=== PATIENT | female | born 1965 | race Caucasian/White ===

== ENCOUNTER 2018-01-23 10:51 | Inpatient (IN) | payer BC ==
[~2018-01-23 10:51] MED LIST: CEFAZOLIN 1 GM/50 ML (PMX) 50 ML IVPB
[2018-01-23] MEDS ORDERED: NEOMYC/POLYMYX/BACIT 30 GM OINT (13:20)
[2018-01-23] MEDS: TRANEXAMIC ACID 1,000 MG in DEXTROSE 5% 100 ML IV (13:30)
[2018-01-23] MEDS ORDERED: morphine SULFATE/PF (10 MG/10 ML) INJ (13:53)
[2018-01-23] MEDS ORDERED: FENTAnyl 50 MCG/ML VIAL (14:33)
[2018-01-23] MEDS: POLYMYXIN/BACITRACIN 1L IRRIG (14:36)
[2018-01-23] MEDS ORDERED: SUCCINYLCHOLINE CHLORIDE 100 MG/5 ML SYG IV (15:56)
[2018-01-23] MEDS ORDERED: LIDOCAINE 100 MG SYRINGE (15:56)
[2018-01-23] MEDS ORDERED: SUGAMMADEX SODIUM 200 MG/2 ML VIAL IV (15:56)
[2018-01-23] MEDS ORDERED: PROPOFOL 20 ML (15:56)
[2018-01-23] MEDS ORDERED: ROCURONIUM 50 MG INJ (15:56)
[2018-01-23] MEDS ORDERED: CEFAZOLIN 1 GM INJ (15:56)
[2018-01-23] MEDS ORDERED: METOCLOPRAMIDE 10 MG INJ IV (16:30)
[2018-01-23] MEDS ORDERED: ONDANSETRON 4 MG INJ IV (16:30)
[2018-01-23] MEDS ORDERED: FENTAnyl 50 MCG/ML VIAL IV ×2 (16:30)
[2018-01-23] MEDS ORDERED: HYDROmorphONE (0.2 MG/ML) 10ML SYG IV (16:30)
[2018-01-23] MEDS: HYDROmorphONE (0.2 MG/ML) 10ML SYG IV ×5 (16:39→17:05)
[2018-01-23 16:43] LABS: HEMATOCRIT 35.9 % (37.0-47.0); HEMOGLOBIN 11.2 g/dl (12.0-16.0)
[2018-01-23 17:06] LABS: ANION GAP 12 (8-16); BLOOD UREA NITROGEN 10 mg/dl (7-20); CALCIUM 8.8 mg/dl (8.4-10.2); CARBON DIOXIDE 25 mmol/L (21-31); CHLORIDE 107 mmol/L (97-110); CREATININE 0.49 mg/dl (0.44-1.00); GLUCOSE 148 mg/dl (70-220); POTASSIUM 3.8 mmol/L (3.5-5.1); SODIUM 140 mmol/L (135-144)
[2018-01-23] MEDS: MEPERIDINE 25 MG INJ IV (17:11)
[2018-01-23] MEDS: DIPHENHYDRAMINE 50 MG INJ IV (17:15)
[2018-01-23] MEDS: morphine 2 MG INJ IV ×2 (19:56→22:58)
[2018-01-23] MEDS: DEXTROSE 5%-LR 1,000 ML IV (23:49)
[2018-01-23] MEDS: HYDROCODONE/APAP (5/325) TAB PO (23:50)
[2018-01-24] MEDS: CEFAZOLIN 1 GM/50 ML (PMX) 50 ML IVPB ×3 (01:00→16:36)
[2018-01-24] MEDS: morphine 2 MG INJ IV ×4 (01:01→21:03)
[2018-01-24 05:48] LABS: ADD MAN DIFF? NO
[2018-01-24 05:52] LABS: BASOPHILS % 0.2 % (0.0-2.0); EOSINOPHILS # 0.1 10^3/ul (0.0-0.5); EOSINOPHILS % 0.4 % (0.0-7.0); HEMATOCRIT 32.4 % (37.0-47.0); HEMOGLOBIN 10.5 g/dl (12.0-16.0); LYMPHOCYTES # 0.8 10^3/ul (0.8-2.9); MEAN CORPUSCULAR HEMOGLOBIN 24.9 pg (29.0-33.0); MEAN CORPUSCULAR HGB CONC 32.4 g/dl (32.0-37.0); MEAN CORPUSCULAR VOLUME 76.8 fl (82.0-101.0); MEAN PLATELET VOLUME 11.8 fl (7.4-10.4); MONOCYTE # 0.8 10^3/ul (0.3-0.9); MONOCYTES % 6.4 % (0.0-11.0); NEUTROPHIL # 11.2 10^3/ul (1.6-7.5); NEUTROPHILS % 86.6 % (39.0-77.0); PLATELET COUNT 192 10^3/UL (140-415); RED BLOOD COUNT 4.22 10^6/ul (4.20-5.40); RED CELL DISTRIBUTION WIDTH 14.6 % (11.5-14.5)
[2018-01-24 05:56] LABS: WHITE BLOOD COUNT 12.9 10^3/ul (4.8-10.8)
[2018-01-24 06:08] LABS: ANION GAP 15 (8-16); BLOOD UREA NITROGEN 9 mg/dl (7-20); CALCIUM 8.9 mg/dl (8.4-10.2); CARBON DIOXIDE 28 mmol/L (21-31); CHLORIDE 102 mmol/L (97-110); CREATININE 0.46 mg/dl (0.44-1.00); GLUCOSE 183 mg/dl (70-220); POTASSIUM 3.5 mmol/L (3.5-5.1); SODIUM 141 mmol/L (135-144)
[2018-01-24] MEDS: HYDROmorphONE 0.5 MG/0.5 ML SYG IV ×3 (10:21→18:42)
[2018-01-24 11:10] LABS: ADD UMIC NO; UR ASCORBIC ACID NEGATIVE (NEGATIVE); UR BILIRUBIN (Dip) NEGATIVE (NEGATIVE); UR BLOOD (Dip) NEGATIVE (NEGATIVE); UR CLARITY CLEAR (CLEAR); UR COLOR YELLOW (YELLOW); UR GLUCOSE (Dip) 1+ mg/dL (NEGATIVE); UR KETONES (Dip) NEGATIVE (NEGATIVE); UR LEUKOCYTE ESTERASE (Dip) NEGATIVE Leu/ul (NEGATIVE); UR NITRITE (Dip) NEGATIVE (NEGATIVE); UR TOTAL PROTEIN (Dip) NEGATIVE (NEGATIVE); UR UROBILINOGEN (Dip) NEGATIVE (NEGATIVE)
[2018-01-24] MEDS: ASPIRIN (EC) 325 MG TAB PO ×2 (12:30→21:02)
[2018-01-25] MEDS: HYDROmorphONE 0.5 MG/0.5 ML SYG IV ×3 (01:47→18:16)
[2018-01-25 05:51] LABS: ADD MAN DIFF? NO
[2018-01-25 06:08] LABS: BASOPHILS % 0.2 % (0.0-2.0); EOSINOPHILS % 0.1 % (0.0-7.0); HEMATOCRIT 29.3 % (37.0-47.0); HEMOGLOBIN 9.3 g/dl (12.0-16.0); LYMPHOCYTES # 1.6 10^3/ul (0.8-2.9); LYMPHOCYTES % 12.3 % (15.0-51.0); MEAN CORPUSCULAR HEMOGLOBIN 24.3 pg (29.0-33.0); MEAN CORPUSCULAR HGB CONC 31.7 g/dl (32.0-37.0); MEAN CORPUSCULAR VOLUME 76.7 fl (82.0-101.0); MEAN PLATELET VOLUME 11.7 fl (7.4-10.4); MONOCYTE # 1.2 10^3/ul (0.3-0.9); NEUTROPHIL # 10.3 10^3/ul (1.6-7.5); NEUTROPHILS % 77.5 % (39.0-77.0); PLATELET COUNT 168 10^3/UL (140-415); RED BLOOD COUNT 3.82 10^6/ul (4.20-5.40); RED CELL DISTRIBUTION WIDTH 14.6 % (11.5-14.5)
[2018-01-25 06:08] LABS: WHITE BLOOD COUNT 13.3 10^3/ul (4.8-10.8)
[2018-01-25 06:12] LABS: PHOSPHORUS 2.6 mg/dl (2.5-4.9)
[2018-01-25 06:13] LABS: ANION GAP 11 (8-16); BLOOD UREA NITROGEN 8 mg/dl (7-20); CALCIUM 8.9 mg/dl (8.4-10.2); CARBON DIOXIDE 33 mmol/L (21-31); CHLORIDE 94 mmol/L (97-110); CREATININE 0.51 mg/dl (0.44-1.00); GLUCOSE 134 mg/dl (70-220); SODIUM 134 mmol/L (135-144)
[2018-01-25] MEDS: HYDROCODONE/APAP (5/325) TAB PO ×2 (09:17→14:00)
[2018-01-25] MEDS: ASPIRIN (EC) 325 MG TAB PO ×2 (09:17→20:51)
[2018-01-26] MEDS: HYDROmorphONE 0.5 MG/0.5 ML SYG IV ×2 (01:14→12:23)
[2018-01-26] MEDS: morphine 2 MG INJ IV (05:18)
[2018-01-26 06:35] LABS: ADD MAN DIFF? NO
[2018-01-26 06:45] LABS: WHITE BLOOD COUNT 11.3 10^3/ul (4.8-10.8)
[2018-01-26 06:45] LABS: BASOPHILS % 0.3 % (0.0-2.0); EOSINOPHILS % 0.3 % (0.0-7.0); HEMATOCRIT 28.9 % (37.0-47.0); HEMOGLOBIN 9.3 g/dl (12.0-16.0); LYMPHOCYTES # 1.2 10^3/ul (0.8-2.9); LYMPHOCYTES % 10.9 % (15.0-51.0); MEAN CORPUSCULAR HEMOGLOBIN 24.8 pg (29.0-33.0); MEAN CORPUSCULAR HGB CONC 32.2 g/dl (32.0-37.0); MEAN CORPUSCULAR VOLUME 77.1 fl (82.0-101.0); MEAN PLATELET VOLUME 11.4 fl (7.4-10.4); MONOCYTE # 0.8 10^3/ul (0.3-0.9); MONOCYTES % 7.3 % (0.0-11.0); NEUTROPHILS % 80.1 % (39.0-77.0); PLATELET COUNT 178 10^3/UL (140-415); RED BLOOD COUNT 3.75 10^6/ul (4.20-5.40); RED CELL DISTRIBUTION WIDTH 14.6 % (11.5-14.5)
[2018-01-26 07:11] LABS: ANION GAP 12 (8-16); BLOOD UREA NITROGEN 9 mg/dl (7-20); CALCIUM 8.9 mg/dl (8.4-10.2); CARBON DIOXIDE 32 mmol/L (21-31); CHLORIDE 100 mmol/L (97-110); CREATININE 0.58 mg/dl (0.44-1.00); GLUCOSE 136 mg/dl (70-220); POTASSIUM 3.7 mmol/L (3.5-5.1); SODIUM 140 mmol/L (135-144)
[2018-01-26] MEDS: HYDROCODONE/APAP (5/325) TAB PO ×2 (09:02→19:12)
[2018-01-26] MEDS: ASPIRIN (EC) 325 MG TAB PO ×2 (09:02→21:02)
[2018-01-27] MEDS: HYDROmorphONE 0.5 MG/0.5 ML SYG IV ×3 (01:21→11:24)
[2018-01-27 05:35] LABS: ADD MAN DIFF? NO
[2018-01-27 05:43] LABS: BASOPHILS % 0.3 % (0.0-2.0); EOSINOPHILS # 0.2 10^3/ul (0.0-0.5); EOSINOPHILS % 1.7 % (0.0-7.0); HEMATOCRIT 27.8 % (37.0-47.0); HEMOGLOBIN 8.5 g/dl (12.0-16.0); LYMPHOCYTES # 2.1 10^3/ul (0.8-2.9); LYMPHOCYTES % 23.9 % (15.0-51.0); MEAN CORPUSCULAR HEMOGLOBIN 24.1 pg (29.0-33.0); MEAN CORPUSCULAR HGB CONC 30.6 g/dl (32.0-37.0); MEAN CORPUSCULAR VOLUME 78.8 fl (82.0-101.0); MEAN PLATELET VOLUME 11.1 fl (7.4-10.4); MONOCYTE # 0.7 10^3/ul (0.3-0.9); MONOCYTES % 7.6 % (0.0-11.0); NEUTROPHIL # 5.6 10^3/ul (1.6-7.5); NEUTROPHILS % 65.5 % (39.0-77.0); PLATELET COUNT 173 10^3/UL (140-415); RED BLOOD COUNT 3.53 10^6/ul (4.20-5.40); RED CELL DISTRIBUTION WIDTH 14.6 % (11.5-14.5)
[2018-01-27 05:43] LABS: WHITE BLOOD COUNT 8.6 10^3/ul (4.8-10.8)
[2018-01-27 06:19] LABS: ANION GAP 13 (8-16); BLOOD UREA NITROGEN 9 mg/dl (7-20); CALCIUM 8.7 mg/dl (8.4-10.2); CARBON DIOXIDE 33 mmol/L (21-31); CHLORIDE 99 mmol/L (97-110); CREATININE 0.52 mg/dl (0.44-1.00); GLUCOSE 112 mg/dl (70-220); POTASSIUM 3.6 mmol/L (3.5-5.1); SODIUM 141 mmol/L (135-144)
[2018-01-27] MEDS: ASPIRIN (EC) 325 MG TAB PO ×2 (09:11→20:50)
[2018-01-27] MEDS: HYDROCODONE/APAP (5/325) TAB PO (16:21)
[2018-01-28] MEDS: HYDROCODONE/APAP (5/325) TAB PO ×3 (00:08→18:55)
[2018-01-28 05:12] LABS: ADD MAN DIFF? NO
[2018-01-28 05:20] LABS: WHITE BLOOD COUNT 7.7 10^3/ul (4.8-10.8)
[2018-01-28 05:20] LABS: BASOPHILS % 0.3 % (0.0-2.0); EOSINOPHILS # 0.2 10^3/ul (0.0-0.5); EOSINOPHILS % 2.4 % (0.0-7.0); HEMATOCRIT 26.7 % (37.0-47.0); HEMOGLOBIN 8.3 g/dl (12.0-16.0); LYMPHOCYTES # 1.7 10^3/ul (0.8-2.9); LYMPHOCYTES % 22.7 % (15.0-51.0); MEAN CORPUSCULAR HEMOGLOBIN 24.3 pg (29.0-33.0); MEAN CORPUSCULAR HGB CONC 31.1 g/dl (32.0-37.0); MEAN CORPUSCULAR VOLUME 78.3 fl (82.0-101.0); MEAN PLATELET VOLUME 10.4 fl (7.4-10.4); MONOCYTE # 0.6 10^3/ul (0.3-0.9); MONOCYTES % 8.2 % (0.0-11.0); NEUTROPHILS % 65.2 % (39.0-77.0); PLATELET COUNT 182 10^3/UL (140-415); RED BLOOD COUNT 3.41 10^6/ul (4.20-5.40); RED CELL DISTRIBUTION WIDTH 14.7 % (11.5-14.5)
[2018-01-28 05:51] LABS: ANION GAP 9 (8-16); BLOOD UREA NITROGEN 8 mg/dl (7-20); CALCIUM 8.9 mg/dl (8.4-10.2); CARBON DIOXIDE 35 mmol/L (21-31); CHLORIDE 102 mmol/L (97-110); CREATININE 0.52 mg/dl (0.44-1.00); GLUCOSE 108 mg/dl (70-220); POTASSIUM 3.9 mmol/L (3.5-5.1); SODIUM 142 mmol/L (135-144)
[2018-01-28] MEDS: ASPIRIN (EC) 325 MG TAB PO (09:10)
[2018-01-28] MEDS: HYDROmorphONE 0.5 MG/0.5 ML SYG IV (12:04)
== END 2018-01-28 19:00 | disposition home or self-care (01) | DRG 470 ==
LOC: REC 10:51 → MS1 18:05
PROC: 0SRD069 Replacement of Left Knee Joint with Oxidized Zirconium on Polyethylene Synthetic Substitute, Cemented, Open Approach (ICD-10-PCS; principal; 2018-01-23 13:00)
DX: M17.12 Unilateral primary osteoarthritis, left knee (principal); E66.01 Morbid (severe) obesity due to excess calories; I10 Essential (primary) hypertension; D72.829 Elevated white blood cell count, unspecified; G89.18 Other acute postprocedural pain; D64.9 Anemia, unspecified; Z68.39 Body mass index [BMI] 39.0-39.9, adult
CPT/HCPCS: 71045; 80048; 81003; 83735; 84100; 85014; 85018; 85025; 87086; 88304; 88311; 93005; 97110; 97116; 97162; 97530

== ENCOUNTER 2018-11-01 11:57 | Inpatient (IN) | payer BC ==
[~2018-11-01 11:57] MED LIST changes: -CEFAZOLIN 1 GM/50 ML (PMX) 50 ML IVPB; +ROCURONIUM 50 MG INJ
[2018-11-01] MEDS ORDERED: LIDOCAINE 2% (SDV) 5 ML INJ (13:16)
[2018-11-01] MEDS ORDERED: SUCCINYLCHOLINE CHLORIDE 100 MG/5 ML SYG IV (13:16)
[2018-11-01] MEDS ORDERED: PROPOFOL 20 ML (13:16)
[2018-11-01] MEDS: TRANEXAMIC ACID 1,000 MG in DEXTROSE 5% 100 ML IV (13:30)
[2018-11-01] MEDS ORDERED: CEFAZOLIN 1 GM INJ (13:47)
[2018-11-01] MEDS: POLYMYXIN/BACITRACIN 1L IRRIG IRR (14:17)
[2018-11-01] MEDS ORDERED: DEXAMETHASONE 4 MG/ML 1 ML INJ (14:19)
[2018-11-01] MEDS ORDERED: ONDANSETRON 4 MG INJ ×2 (14:19→15:47)
[2018-11-01] MEDS ORDERED: POLYMYXIN/BACITRACIN 1L IRRIG (14:44)
[2018-11-01] MEDS ORDERED: NEOMYC/POLYMYX/BACIT 30 GM OINT (14:44)
[2018-11-01] MEDS ORDERED: ROPIVACAINE 0.5 % 30 ML VIAL (15:12)
[2018-11-01] MEDS ORDERED: GLYCOPYRROLATE 0.4 MG INJ (15:22)
[2018-11-01] MEDS ORDERED: NEOSTIGMINE 3 MG/3 ML SYRINGE (15:22)
[2018-11-01] MEDS ORDERED: HYDROmorphONE 1 MG/5 ML IV SYRINGE IV ×2 (15:46→16:00)
[2018-11-01] MEDS ORDERED: KETOROLAC 30 MG INJ (15:47)
[2018-11-01] MEDS ORDERED: DIPHENHYDRAMINE 50 MG INJ (15:53)
[2018-11-01] MEDS ORDERED: CEFAZOLIN 1 GM INJ IVPB (16:00)
[2018-11-01] MEDS ORDERED: LABETALOL HCL 20MG INJ IV (16:00)
[2018-11-01] MEDS: KETOROLAC 30 MG INJ IV (16:01)
[2018-11-01] MEDS: ONDANSETRON 4 MG INJ IV (16:02)
[2018-11-01] MEDS: DIPHENHYDRAMINE 50 MG INJ IV (16:02)
[2018-11-01] MEDS: HYDROmorphONE 1 MG/5 ML IV SYRINGE IV (16:03)
[2018-11-01] MEDS ORDERED: CEFAZOLIN 1 GM/50 ML (PMX) 50 ML IVPB (16:10)
[2018-11-01] MEDS: CEFAZOLIN 1 GM/50 ML (PMX) 50 ML IVPB (16:12)
[2018-11-01] MEDS ORDERED: ASPIRIN (EC) 325 MG TAB PO (16:30)
[2018-11-01] MEDS: ASPIRIN (EC) 325 MG TAB PO (16:31)
[2018-11-01 17:26] LABS: HEMATOCRIT 36.8 % (37.0-47.0); HEMOGLOBIN 11.3 g/dl (12.0-16.0)
[2018-11-01 17:44] LABS: ANION GAP 7 (5-13); BLOOD UREA NITROGEN 10 mg/dl (7-20); CALCIUM 9.2 mg/dl (8.4-10.2); CARBON DIOXIDE 26 mmol/L (21-31); CHLORIDE 106 mmol/L (97-110); CREATININE 0.42 mg/dl (0.44-1.00); Estimated GFR > 60 mL/min (>60); GLUCOSE 132 mg/dl (70-220); POTASSIUM 4.9 mmol/L (3.5-5.1); SODIUM 139 mmol/L (135-144)
[2018-11-01] MEDS: morphine 2 MG INJ IV ×2 (18:07→21:36)
[2018-11-01] MEDS ORDERED: ACETAMINOPHEN 325 MG TAB PO (21:30)
[2018-11-01] MEDS: DEXTROSE 5%-0.45% NACL 1,000 ML IV (21:38)
[2018-11-02] MEDS: HYDROCODONE/APAP (5/325) TAB PO ×4 (00:20→23:27)
[2018-11-02] MEDS: morphine 2 MG INJ IV ×4 (04:23→22:08)
[2018-11-02 05:16] LABS: ADD MAN DIFF? NO
[2018-11-02 05:17] LABS: WHITE BLOOD COUNT 10.8 10^3/ul (4.8-10.8)
[2018-11-02 05:17] LABS: BASOPHILS % 0.1 % (0.0-2.0); HEMATOCRIT 32.1 % (37.0-47.0); HEMOGLOBIN 9.9 g/dl (12.0-16.0); LYMPHOCYTES # 0.8 10^3/ul (0.8-2.9); LYMPHOCYTES % 7.6 % (15.0-51.0); MEAN CORPUSCULAR HEMOGLOBIN 23.1 pg (29.0-33.0); MEAN CORPUSCULAR HGB CONC 30.8 g/dl (32.0-37.0); MEAN PLATELET VOLUME 10.8 fl (7.4-10.4); MONOCYTE # 0.7 10^3/ul (0.3-0.9); MONOCYTES % 6.3 % (0.0-11.0); NEUTROPHIL # 9.2 10^3/ul (1.6-7.5); NEUTROPHILS % 85.5 % (39.0-77.0); PLATELET COUNT 199 10^3/UL (140-415); RED BLOOD COUNT 4.28 10^6/ul (4.20-5.40); RED CELL DISTRIBUTION WIDTH 15.1 % (11.5-14.5)
[2018-11-02 05:38] LABS: ANION GAP 7 (5-13); BLOOD UREA NITROGEN 14 mg/dl (7-20); CALCIUM 9.1 mg/dl (8.4-10.2); CARBON DIOXIDE 31 mmol/L (21-31); CHLORIDE 101 mmol/L (97-110); CREATININE 0.51 mg/dl (0.44-1.00); Estimated GFR > 60 mL/min (>60); GLUCOSE 149 mg/dl (70-220); POTASSIUM 4.3 mmol/L (3.5-5.1); SODIUM 139 mmol/L (135-144)
[2018-11-02] MEDS: CEFAZOLIN 1 GM/50 ML (PMX) 50 ML IVPB ×2 (05:55→13:06)
[2018-11-02] MEDS: ASPIRIN (EC) 325 MG TAB PO ×2 (08:39→21:25)
[2018-11-02] MEDS: KETOROLAC 30 MG INJ IV (13:07)
[2018-11-02] MEDS: DEXTROSE 5%-0.45% NACL 1,000 ML IV (16:57)
[2018-11-03] MEDS: KETOROLAC 30 MG INJ IV ×2 (00:22→08:35)
[2018-11-03 06:19] LABS: ADD MAN DIFF? NO
[2018-11-03 06:33] LABS: BASOPHILS % 0.2 % (0.0-2.0); EOSINOPHILS # 0.1 10^3/ul (0.0-0.5); EOSINOPHILS % 0.7 % (0.0-7.0); HEMATOCRIT 28.2 % (37.0-47.0); HEMOGLOBIN 8.6 g/dl (12.0-16.0); LYMPHOCYTES # 1.2 10^3/ul (0.8-2.9); LYMPHOCYTES % 15.2 % (15.0-51.0); MEAN CORPUSCULAR HEMOGLOBIN 23.3 pg (29.0-33.0); MEAN CORPUSCULAR HGB CONC 30.5 g/dl (32.0-37.0); MEAN CORPUSCULAR VOLUME 76.4 fl (82.0-101.0); MONOCYTE # 0.6 10^3/ul (0.3-0.9); MONOCYTES % 7.5 % (0.0-11.0); NEUTROPHIL # 6.1 10^3/ul (1.6-7.5); NEUTROPHILS % 75.9 % (39.0-77.0); PLATELET COUNT 160 10^3/UL (140-415); RED BLOOD COUNT 3.69 10^6/ul (4.20-5.40); RED CELL DISTRIBUTION WIDTH 15.2 % (11.5-14.5)
[2018-11-03 06:33] LABS: WHITE BLOOD COUNT 8.1 10^3/ul (4.8-10.8)
[2018-11-03 06:58] LABS: MAGNESIUM 2.2 mg/dl (1.7-2.5)
[2018-11-03 06:58] LABS: PHOSPHORUS 3.2 mg/dl (2.5-4.9)
[2018-11-03 07:07] LABS: ANION GAP 7 (5-13); BLOOD UREA NITROGEN 8 mg/dl (7-20); CALCIUM 8.6 mg/dl (8.4-10.2); CARBON DIOXIDE 30 mmol/L (21-31); CHLORIDE 101 mmol/L (97-110); CREATININE 0.39 mg/dl (0.44-1.00); Estimated GFR > 60 mL/min (>60); GLUCOSE 112 mg/dl (70-220); POTASSIUM 3.8 mmol/L (3.5-5.1); SODIUM 138 mmol/L (135-144)
[2018-11-03] MEDS: ASPIRIN (EC) 325 MG TAB PO ×2 (08:37→20:55)
[2018-11-03] MEDS: HYDROCODONE/APAP (5/325) TAB PO ×2 (11:09→16:16)
[2018-11-03] MEDS: morphine 2 MG INJ IV (12:51)
[2018-11-03 16:15] LABS: RETICULOCYTE RBC 3.66
[2018-11-03 16:15] LABS: RETICULOCYTE COUNT # 0.061 X10^6 (0.020-0.110); RETICULOCYTE COUNT % 1.7 % (0.5-1.5)
[2018-11-03 16:19] LABS: IRON 12 ug/dl (35-150)
[2018-11-03 16:28] LABS: % IRON SATURATION 4 % SAT (22-52); TOTAL IRON BINDING CAPACITY 307 ug/dl (241-421)
[2018-11-03] MEDS: FERROUS SULFATE (EC) 325 MG TAB PO (20:55)
[2018-11-03 22:29] LABS: FOLATE 4.8 ng/ml (2.8-20.0)
[2018-11-04] MEDS: HYDROCODONE/APAP (5/325) TAB PO ×4 (00:55→22:04)
[2018-11-04 05:01] LABS: ADD MAN DIFF? NO
[2018-11-04 05:12] LABS: WHITE BLOOD COUNT 8.6 10^3/ul (4.8-10.8)
[2018-11-04 05:12] LABS: BASOPHILS % 0.3 % (0.0-2.0); EOSINOPHILS # 0.1 10^3/ul (0.0-0.5); EOSINOPHILS % 1.6 % (0.0-7.0); HEMOGLOBIN 8.6 g/dl (12.0-16.0); LYMPHOCYTES # 1.2 10^3/ul (0.8-2.9); LYMPHOCYTES % 14.2 % (15.0-51.0); MEAN CORPUSCULAR HEMOGLOBIN 23.3 pg (29.0-33.0); MEAN CORPUSCULAR HGB CONC 30.7 g/dl (32.0-37.0); MEAN CORPUSCULAR VOLUME 75.9 fl (82.0-101.0); MEAN PLATELET VOLUME 11.6 fl (7.4-10.4); MONOCYTE # 0.6 10^3/ul (0.3-0.9); MONOCYTES % 6.4 % (0.0-11.0); NEUTROPHIL # 6.6 10^3/ul (1.6-7.5); NEUTROPHILS % 76.9 % (39.0-77.0); PLATELET COUNT 173 10^3/UL (140-415); RED BLOOD COUNT 3.69 10^6/ul (4.20-5.40); RED CELL DISTRIBUTION WIDTH 15.2 % (11.5-14.5)
[2018-11-04 05:23] LABS: ANION GAP 7 (5-13); BLOOD UREA NITROGEN 8 mg/dl (7-20); CALCIUM 8.8 mg/dl (8.4-10.2); CARBON DIOXIDE 32 mmol/L (21-31); CHLORIDE 100 mmol/L (97-110); CREATININE 0.39 mg/dl (0.44-1.00); Estimated GFR > 60 mL/min (>60); GLUCOSE 113 mg/dl (70-220); SODIUM 139 mmol/L (135-144)
[2018-11-04] MEDS: ASPIRIN (EC) 325 MG TAB PO ×2 (08:48→21:53)
[2018-11-04] MEDS: FERROUS SULFATE (EC) 325 MG TAB PO ×2 (08:49→21:56)
[2018-11-04] MEDS: CYANOCOBALAMIN 1000 MCG INJ SC ×2 (10:51→13:34)
[2018-11-04] MEDS: SOD FERRIC GLUC COMPLX 125 MG in SOD CHLORIDE 0.9% 100 ML IVPB (17:42)
[2018-11-04] MEDS: POLYETHYLENE GLYCOL 17 GM PACKET PO (17:49)
[2018-11-04] MEDS: DOCUSATE SODIUM 100 MG CAP PO (17:49)
[2018-11-05] MEDS: HYDROCODONE/APAP (5/325) TAB PO ×4 (03:53→22:30)
[2018-11-05 05:05] LABS: ADD MAN DIFF? NO
[2018-11-05 05:09] LABS: BASOPHILS % 0.4 % (0.0-2.0); EOSINOPHILS # 0.2 10^3/ul (0.0-0.5); EOSINOPHILS % 2.1 % (0.0-7.0); HEMATOCRIT 27.8 % (37.0-47.0); HEMOGLOBIN 8.5 g/dl (12.0-16.0); LYMPHOCYTES # 1.4 10^3/ul (0.8-2.9); LYMPHOCYTES % 16.8 % (15.0-51.0); MEAN CORPUSCULAR HEMOGLOBIN 23.2 pg (29.0-33.0); MEAN CORPUSCULAR HGB CONC 30.6 g/dl (32.0-37.0); MONOCYTE # 0.7 10^3/ul (0.3-0.9); NEUTROPHIL # 6.1 10^3/ul (1.6-7.5); NEUTROPHILS % 71.8 % (39.0-77.0); PLATELET COUNT 196 10^3/UL (140-415); RED BLOOD COUNT 3.66 10^6/ul (4.20-5.40); RED CELL DISTRIBUTION WIDTH 15.4 % (11.5-14.5)
[2018-11-05 05:09] LABS: WHITE BLOOD COUNT 8.5 10^3/ul (4.8-10.8)
[2018-11-05 05:40] LABS: ANION GAP 7 (5-13); BLOOD UREA NITROGEN 7 mg/dl (7-20); CALCIUM 8.9 mg/dl (8.4-10.2); CARBON DIOXIDE 32 mmol/L (21-31); CHLORIDE 102 mmol/L (97-110); CREATININE 0.36 mg/dl (0.44-1.00); Estimated GFR > 60 mL/min (>60); GLUCOSE 119 mg/dl (70-220); POTASSIUM 4.2 mmol/L (3.5-5.1); SODIUM 141 mmol/L (135-144)
[2018-11-05] MEDS: ASPIRIN (EC) 325 MG TAB PO ×2 (08:27→21:25)
[2018-11-05] MEDS: DOCUSATE SODIUM 100 MG CAP PO (08:27)
[2018-11-05] MEDS: FERROUS SULFATE (EC) 325 MG TAB PO ×2 (08:27→21:25)
[2018-11-05] MEDS: POLYETHYLENE GLYCOL 17 GM PACKET PO (08:29)
[2018-11-05 14:23] LABS: Allen Test ACCEPTAB; Arterial Base Excess 4.8 mmol/L (-3.0-3); Arterial Blood Gas Oxygen Sat 87.8 mmHG (95.0-98.0); Arterial COHb 0.3 % (0.0-3.0); Arterial Fraction of Oxyhgb 87.4 % (93.0-99.0); Arterial HCO3 28.8 mmol/L (22.0-26.0); Arterial MetHb 0.1 % (0.0-1.5); Arterial pCO2 40.4 mmhg (35-45); MODE ROOM AIR; Site Right Radial
[2018-11-05] MEDS: SOD FERRIC GLUC COMPLX 125 MG in SOD CHLORIDE 0.9% 100 ML IVPB (17:34)
[2018-11-05] MEDS: FUROSEMIDE 40 MG INJ IV (18:21)
[2018-11-06] MEDS: HYDROCODONE/APAP (5/325) TAB PO ×4 (05:09→21:05)
[2018-11-06 05:38] LABS: ADD MAN DIFF? NO
[2018-11-06 05:43] LABS: BASOPHILS % 0.4 % (0.0-2.0); EOSINOPHILS # 0.3 10^3/ul (0.0-0.5); EOSINOPHILS % 3.4 % (0.0-7.0); HEMATOCRIT 28.4 % (37.0-47.0); HEMOGLOBIN 8.6 g/dl (12.0-16.0); LYMPHOCYTES # 1.8 10^3/ul (0.8-2.9); LYMPHOCYTES % 23.5 % (15.0-51.0); MEAN CORPUSCULAR HEMOGLOBIN 23.4 pg (29.0-33.0); MEAN CORPUSCULAR HGB CONC 30.3 g/dl (32.0-37.0); MEAN CORPUSCULAR VOLUME 77.2 fl (82.0-101.0); MEAN PLATELET VOLUME 10.6 fl (7.4-10.4); MONOCYTE # 0.7 10^3/ul (0.3-0.9); MONOCYTES % 8.7 % (0.0-11.0); NEUTROPHIL # 4.8 10^3/ul (1.6-7.5); NEUTROPHILS % 62.3 % (39.0-77.0); PLATELET COUNT 209 10^3/UL (140-415); RED BLOOD COUNT 3.68 10^6/ul (4.20-5.40); RED CELL DISTRIBUTION WIDTH 15.3 % (11.5-14.5)
[2018-11-06 05:43] LABS: WHITE BLOOD COUNT 7.7 10^3/ul (4.8-10.8)
[2018-11-06 06:40] LABS: ANION GAP 7 (5-13); BLOOD UREA NITROGEN 8 mg/dl (7-20); CALCIUM 9.2 mg/dl (8.4-10.2); CARBON DIOXIDE 33 mmol/L (21-31); CHLORIDE 97 mmol/L (97-110); CREATININE 0.35 mg/dl (0.44-1.00); Estimated GFR > 60 mL/min (>60); GLUCOSE 109 mg/dl (70-220); POTASSIUM 3.9 mmol/L (3.5-5.1); SODIUM 137 mmol/L (135-144)
[2018-11-06] MEDS: ASPIRIN (EC) 325 MG TAB PO ×2 (08:58→20:59)
[2018-11-06] MEDS: FERROUS SULFATE (EC) 325 MG TAB PO ×2 (08:59→20:58)
[2018-11-06] MEDS: FUROSEMIDE 40 MG INJ IV (08:59)
[2018-11-06] MEDS: SENNA TAB PO (08:59)
[2018-11-06] MEDS: SOD FERRIC GLUC COMPLX 125 MG in SOD CHLORIDE 0.9% 100 ML IVPB (16:28)
[2018-11-06] MEDS ORDERED: morphine LIQ (10 MG/5 ML) CUP PO (19:00)
[2018-11-07] MEDS: HYDROCODONE/APAP (5/325) TAB PO ×5 (02:59→22:18)
[2018-11-07 05:08] LABS: ADD MAN DIFF? NO
[2018-11-07 05:23] LABS: WHITE BLOOD COUNT 9.2 10^3/ul (4.8-10.8)
[2018-11-07 05:24] LABS: BASOPHILS % 0.3 % (0.0-2.0); EOSINOPHILS # 0.3 10^3/ul (0.0-0.5); EOSINOPHILS % 2.7 % (0.0-7.0); HEMATOCRIT 28.3 % (37.0-47.0); HEMOGLOBIN 8.6 g/dl (12.0-16.0); LYMPHOCYTES # 1.7 10^3/ul (0.8-2.9); LYMPHOCYTES % 18.6 % (15.0-51.0); MEAN CORPUSCULAR HEMOGLOBIN 23.4 pg (29.0-33.0); MEAN CORPUSCULAR HGB CONC 30.4 g/dl (32.0-37.0); MEAN CORPUSCULAR VOLUME 76.9 fl (82.0-101.0); MEAN PLATELET VOLUME 10.6 fl (7.4-10.4); MONOCYTE # 0.7 10^3/ul (0.3-0.9); MONOCYTES % 7.9 % (0.0-11.0); NEUTROPHIL # 6.2 10^3/ul (1.6-7.5); NEUTROPHILS % 67.5 % (39.0-77.0); NUCLEATED RED BLOOD CELLS% 0.2 /100WBC (0.0-0.0); PLATELET COUNT 231 10^3/UL (140-415); RED BLOOD COUNT 3.68 10^6/ul (4.20-5.40); RED CELL DISTRIBUTION WIDTH 15.7 % (11.5-14.5)
[2018-11-07 05:30] LABS: ANION GAP 7 (5-13); BLOOD UREA NITROGEN 10 mg/dl (7-20); CALCIUM 9.3 mg/dl (8.4-10.2); CARBON DIOXIDE 35 mmol/L (21-31); CHLORIDE 97 mmol/L (97-110); CREATININE 0.47 mg/dl (0.44-1.00); Estimated GFR > 60 mL/min (>60); GLUCOSE 122 mg/dl (70-220); POTASSIUM 4.1 mmol/L (3.5-5.1); SODIUM 139 mmol/L (135-144)
[2018-11-07 07:40] LABS: AADO2 Arterial 42.7 mmHg (7.0-24.0); Allen Test ACCEPTAB; Arterial Base Excess 5.9 mmol/L (-3.0-3); Arterial COHb 0.6 % (0.0-3.0); Arterial Fraction of Oxyhgb 88.2 % (93.0-99.0); Arterial HCO3 30.2 mmol/L (22.0-26.0); Arterial MetHb 0.3 % (0.0-1.5); Arterial pCO2 43.1 mmhg (35-45); MODE ROOM AIR; Site Right Radial
[2018-11-07] MEDS: FERROUS SULFATE (EC) 325 MG TAB PO ×2 (09:00→20:14)
[2018-11-07] MEDS: ASPIRIN (EC) 325 MG TAB PO ×2 (09:00→20:14)
[2018-11-07] MEDS: SOD FERRIC GLUC COMPLX 125 MG in SOD CHLORIDE 0.9% 100 ML IVPB (17:51)
[2018-11-08] MEDS: HYDROCODONE/APAP (5/325) TAB PO ×5 (04:21→20:49)
[2018-11-08 05:39] LABS: ADD MAN DIFF? NO
[2018-11-08 05:49] LABS: BASOPHILS % 0.4 % (0.0-2.0); EOSINOPHILS # 0.2 10^3/ul (0.0-0.5); EOSINOPHILS % 2.7 % (0.0-7.0); HEMATOCRIT 28.8 % (37.0-47.0); HEMOGLOBIN 8.6 g/dl (12.0-16.0); LYMPHOCYTES # 1.4 10^3/ul (0.8-2.9); LYMPHOCYTES % 18.3 % (15.0-51.0); MEAN CORPUSCULAR HEMOGLOBIN 23.4 pg (29.0-33.0); MEAN CORPUSCULAR HGB CONC 29.9 g/dl (32.0-37.0); MEAN CORPUSCULAR VOLUME 78.5 fl (82.0-101.0); MEAN PLATELET VOLUME 10.2 fl (7.4-10.4); MONOCYTE # 0.6 10^3/ul (0.3-0.9); MONOCYTES % 7.1 % (0.0-11.0); NEUTROPHIL # 5.3 10^3/ul (1.6-7.5); NEUTROPHILS % 67.7 % (39.0-77.0); NUCLEATED RED BLOOD CELLS% 0.3 /100WBC (0.0-0.0); PLATELET COUNT 224 10^3/UL (140-415); RED BLOOD COUNT 3.67 10^6/ul (4.20-5.40); RED CELL DISTRIBUTION WIDTH 15.9 % (11.5-14.5)
[2018-11-08 05:49] LABS: WHITE BLOOD COUNT 7.9 10^3/ul (4.8-10.8)
[2018-11-08 06:32] LABS: ANION GAP 9 (5-13); BLOOD UREA NITROGEN 8 mg/dl (7-20); CALCIUM 9.2 mg/dl (8.4-10.2); CARBON DIOXIDE 32 mmol/L (21-31); CHLORIDE 99 mmol/L (97-110); Estimated GFR > 60 mL/min (>60); GLUCOSE 104 mg/dl (70-220); POTASSIUM 3.8 mmol/L (3.5-5.1); SODIUM 140 mmol/L (135-144)
[2018-11-08] MEDS: ASPIRIN (EC) 325 MG TAB PO ×2 (09:09→20:49)
[2018-11-08] MEDS: FERROUS SULFATE (EC) 325 MG TAB PO ×2 (09:09→20:49)
[2018-11-08] MEDS: SOD FERRIC GLUC COMPLX 125 MG in SOD CHLORIDE 0.9% 100 ML IVPB (16:34)
[2018-11-09] MEDS: HYDROCODONE/APAP (5/325) TAB PO ×2 (02:46→07:30)
[2018-11-09] MEDS: FERROUS SULFATE (EC) 325 MG TAB PO (08:43)
[2018-11-09] MEDS: DOCUSATE SODIUM 100 MG CAP PO (08:43)
[2018-11-09] MEDS: ASPIRIN (EC) 325 MG TAB PO (08:43)
== END 2018-11-09 11:15 | disposition home health service (06) | DRG 470 ==
LOC: REC 11:57 → MS1 17:24
PROC: 0SRC0J9 Replacement of Right Knee Joint with Synthetic Substitute, Cemented, Open Approach (ICD-10-PCS; principal; 2018-11-01 13:12)
DX: M17.11 Unilateral primary osteoarthritis, right knee (principal); Z68.42 Body mass index [BMI] 45.0-49.9, adult; D62 Acute posthemorrhagic anemia; E66.01 Morbid (severe) obesity due to excess calories; I11.9 Hypertensive heart disease without heart failure; E53.8 Deficiency of other specified B group vitamins
CPT/HCPCS: 36600; 71045; 78582; 80048; 82607; 82746; 82803; 83540; 83735; 84100; 85014; 85018; 85025; 85045; 86850; 86900; 86901; 87086; 88304; 88311; 97110; 97116; 97162; 97530